=== PATIENT | female | born 1955 | race Caucasian/White ===

== ENCOUNTER 2019-06-30 07:41 | Outpatient (CLI) | payer BC ==
--- NOTE | 2019-06-30 10:17 | MRI ---
MRI LUMBAR SPINE NONCONTRAST: DATE: 06/30/2019 HISTORY: 64-year-old female with ICD-10: "M 54.27, other intervertebral disc displacement, lumbosacral region" Low back pain and right lumbar radiculopathy. COMPARISON: None FINDINGS: Vertebral body heights are maintained. Conus medullaris terminates at lower L2 level. No high-grade s coliosis. T12-L1:Essentially normal L1-2:Minimal disc bulge. Otherwise normal. L2-3:Mild disc bulge. Otherwise normal. L3-4:Mild disc bulge. Disc space maintained. Mild bilateral facet DJD. No right neural foraminal sten osis. Mild left neural foraminal stenosis. Mild central stenosis. L4-5:Moderate disc space narrowing. Endplate irregularity with Modic type I marrow changes. Retrolist hesis of L4 on L5. Large diffuse disc bulge. Superimposed right paracentral focal disc extrusion without significant migration effaces the right anterolateral aspect of the thecal sac, posteriorly d isplacing the right L5 nerve root. Moderate right neural foraminal stenosis. Mild left neural foraminal stenosis. Mild central spinal canal stenosis. L5-S1:Moderate to severe disc space narrowing. Diffuse disc bulge. Generous caliber of spinal canal a nd thecal sac. Slight degenerative retrolisthesis of L5 on S1. Moderate bilateral neural foraminal stenosis. Mild bilateral facet DJD. IMPRESSION: 1. High-grade degenerative disc disease at L4-5, where there is a large disc bulge plus superimposed right paracentral-lateral extruded disc herniation that impinges on the right L5 nerve root.
== END 2019-06-30 07:42 | disposition home or self-care (01) ==
LOC: BICMRI 07:41
PROVIDERS: ATTEND Psychiatry & Neurology Neurology
DX: M51.27 Other intervertebral disc displacement, lumbosacral region (principal); M51.36 Other intervertebral disc degeneration, lumbar region; M51.26 Other intervertebral disc displacement, lumbar region; M51.86 Other intervertebral disc disorders, lumbar region
CPT/HCPCS: 72148

== ENCOUNTER 2022-09-17 12:25 | Outpatient (CLI) | payer MEDICARE | END 2022-09-17 12:26 | disposition home or self-care (01) | LOC: TBSIIMAG 12:25 | PROVIDERS: ATTEND Neurological Surgery | DX: M54.16 Radiculopathy, lumbar region (principal); M47.816 Spondylosis without myelopathy or radiculopathy, lumbar region; M47.817 Spondylosis without myelopathy or radiculopathy, lumbosacral region; K83.9 Disease of biliary tract, unspecified | CPT/HCPCS: 72148 ==

== ENCOUNTER 2022-09-25 06:47 | Day surgery (SDC) | payer MEDICARE ==
[2022-09-24 10:24] VITALS: BMI 22.6
[2022-09-25] MEDS ORDERED: fentaNYL PF 100 MCG/2 ML SYRINGE ONE (08:50)
[2022-09-25] MEDS ORDERED: Bupivacaine HCl 0.5%/Epinephrine 1:200,000/PF 30 ml Vial ONE (08:51)
[2022-09-25] MEDS ORDERED: Sodium Chloride 0.9% 100 ML ONE ×2 (08:58→12:17)
[2022-09-25] MEDS ORDERED: CEFAZOLIN 2 GM VIAL ONE ×2 (08:58→12:17)
[2022-09-25] MEDS ORDERED: Dexamethasone 20 MG/5 ML VIAL ONE (09:11)
[2022-09-25] MEDS ORDERED: PROPOFOL 200 MG/20 ML VIAL ONE (09:11)
[2022-09-25] MEDS ORDERED: Ketorolac Tromethamine 30 MG/ML VIAL ONE (09:11)
[2022-09-25] MEDS ORDERED: Albuterol HFA (OR) 200 PUFF INH ONE (09:11)
[2022-09-25] MEDS ORDERED: Ondansetron PF 4 MG/2 ML Vial ONE (09:11)
[2022-09-25] MEDS ORDERED: Lidocaine 1% PF 5 ML VIAL ONE (09:11)
[2022-09-25] MEDS ORDERED: Rocuronium Bromide 10 MG/ML (10ML VIAL) ONE (09:11)
[2022-09-25] MEDS ORDERED: SUGAMMADEX SODIUM 200 MG/2 ML VIAL ONE (10:04)
[2022-09-25] MEDS ORDERED: Fentanyl 250 MCG/5 ML VIAL ONE (10:32)
[2022-09-25] MEDS ORDERED: HYDROcodone/Acetaminophen 5/325 mg Tablet ONE (11:42)
== END 2022-09-25 13:15 | disposition home or self-care (01) ==
LOC: SDC 06:47
PROVIDERS: ATTEND Neurological Surgery
PROC: 0SB20ZZ Excision of Lumbar Vertebral Disc, Open Approach (ICD-10-PCS; principal; 2022-09-25)
PROC: 01NB0ZZ Release Lumbar Nerve, Open Approach (ICD-10-PCS; 2022-09-25)
DX: M51.16 Intervertebral disc disorders with radiculopathy, lumbar region (principal); G89.29 Other chronic pain; F17.200 Nicotine dependence, unspecified, uncomplicated; J44.9 Chronic obstructive pulmonary disease, unspecified; M19.90 Unspecified osteoarthritis, unspecified site
CPT/HCPCS: J1100; J1885; J2405; J2704; J3010; J3490